=== PATIENT | male | born 1950 | race Caucasian/White ===

== ENCOUNTER 2018-11-22 06:00 | Emergency (ER) | payer MEDICARE, OTHER, SELFPAY ==
[2018-11-22 06:02] VITALS: BP 147/74; PULSE 76; RESP 18; TEMP 37.1; O2SAT 16; BMI 37.8
--- NOTE | 2018-11-22 06:11 | CT_ITS ---
STUDY: CT ABDOMEN AND PELVIS WITH CONTRAST REASON FOR EXAM: Male, 68 years old. Status post gastric bypass, diarrhea, lower abdominal pain RADIATION DOSAGE (If Supplied By Facility): CTDIvol = ( 19.44 ) mGy, DLP = ( 1576.42 ) mGycm TECHNIQUE: Transaxial images were obtained from the dome of the diaphragm to the symphysis pubis without oral contrast. 100 IV/Oral Isovue 300 was administered. Sagittal and coronal images were reconstructed. Individualized dose optimization techniques were used for this CT. COMPARISON: None. FINDINGS: The visualized lung bases are unremarkable. The visualized portions of the heart are within normal limits. Normal liver. Normal gallbladder and extrahepatic biliary system. Normal spleen. Normal pancreas. Normal bilateral adrenal glands. 2.7 cm cyst in the right kidney. Normal left kidney. Prior surgery of the stomach and small intestine. Normal colon. The appendix is visualized and appears normal. Normal abdominal aorta. Normal inferior vena cava. Normal retroperitoneum. Mild mesenteric thickening is noted along the right paracolic gutter, of question etiology. Normal urinary bladder. The prostate is 6 x 5.2 cm. Normal abdominal wall. Mild degenerative vertebral changes. Grade 1 spondylolisthesis at L5-S1. Spondylolysis of L5. CT/Abdomen/Pelvis WITH Contrast IMPRESSION: Right renal cyst. Mildly prominent prostate. No bowel obstruction. Mild mesenteric thickening is noted along the right paracolic gutter, of question etiology. Electronically Signed: Michael Yan DO at 8:46 EDT Tel [phone], Service support ,
--- NOTE | 2018-11-22 06:13 | ED.DCSUM_ITS ---
- ER Visit Summary Date of Service: 11/22/18 Chief Complaint: Abdominal pain, loose stools History of Present Illness: The patient is a 68 M who has abdominal pain and loose stools. He had this for 2 days. He describes cramping and sharp pain diffusely about his abdomen. He states that trying to have a bowel movement makes the pain worse. Nothing really makes it better. He has nausea without vomiting which started today. He has had looser stools and describes it as liquid with varying colors. He denies any urinary symptoms. He had a Kory-en-Y gastric bypass done on October 16 at [facility]. He has had no complications from the surgery up until today. He denies fevers. He took nothing for the pain or diarrhea at home today. 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 Physical Examination: Vital signs reviewed. HEENT exam unremarkable. Heart is regular rate and rhythm without murmurs. Lungs are clear to auscultation. Abdomen is soft diffuse tenderness. There is no guarding or rebound tenderness. His incisions are well-healed. Extremities reveal no edema. Skin exam normal. Neurologic exam normal. Test Results: Laboratory studies are unremarkable except for glucose of 140. His INR is 1.9. CAT scan of the abdomen pelvis with p.o. and IV contrast Emergency Department Course and Treatment: Patient was medicated with morphine and Zofran. Treatment Plan: [] Disposition: [] Impression: [] This note was generated with [employer] dictation software. It may contain incorrect words, spelling, and punctuation that were not noted in review of the chart prior to signing <Main Hernandez - Last Filed: 11/22/18 07:00> - ER Visit Summary Date of Service: 11/22/18 Test Results: CT scan returns with evidence of right renal cyst and mild prominent prostate. No bowel obstruction is noted. There is mild mesenteric thickening along the right paracolic gutter of questionable etiology. Emergency Department Course and Treatment: On repeat examination patient remains comfortable. He is been able to urinate without difficulty. I spoke with Dr. Olivier, on-call for the patient's gastric bypass surgeon. He advised patient to continue liquid diet and Tylenol or Percocet as needed for pain, no NSAIDs. Patient is scheduled to follow-up in the office in 4 days and is to keep that appointment. Treatment Plan: [] Disposition: Discharge Impression: Diarrhea status post Kory-en-Y gastric bypass This note was generated with [employer] dictation software. It may contain incorrect words, spelling, and punctuation that were not noted in review of the chart prior to signing <Alexandra Cuevas - Last Filed: 11/22/18 10:54> ED Disposition <aMin Hernandez - Last Filed: 11/22/18 07:00> <Alexandra Cuevas - Last Filed: 11/22/18 10:54> - Plan for ED Patient: Referrals: Carlton Khan MD [Primary Care Provider] -
[2018-11-22] MEDS: Ondansetron 4 MG/2 ML Vial IV (06:26)
[2018-11-22] MEDS: Morphine 4 MG/ML Syringe IV (06:26)
[2018-11-22] MEDS: 0.9% Normal Saline 1,000 ML 1000 ML IV (06:26)
[2018-11-22 06:31] LABS: Absolute Lymphocyte Count 0.85 X10^3/uL (0.83-4.51); Absolute Neutrophil Count 7.2 X10^3/uL (2.0-7.7); Basophil# 0.04 X10^3/uL; Basophil% 0.4 % (0-1); Eosinophil# 0.08 X10^3/uL; Eosinophils% 0.9 % (0-5); Hematocrit 44.2 % (40-54); Hemoglobin 14.3 g/dL (13.0-16.5); Lymphocyte # 0.85 X10^3/ul (4.0); Lymphocyte % 9.2 % (19-41); Mean Corp Hgb Conc 32.4 g/dL (32-36); Mean Corpuscular Volume 86.5 fL (80-94); Mean Platelet Vol. 11.2 fl (6.2-12.0); Monocyte# 1.03 X10^3/uL; Monocyte% 11.2 % (0-10); NRBC Flagged by Analyzer 0 % (0-5); Neutrophil # 7.19 X10^3/uL (2.7-7.7); Neutrophil % 78.1 % (47-70); Platelet Count 209 K/mm3 (150-450); RBC Distribution Width CV 15.4 % (11.6-14.6); RBC Distribution Width SD 48.7 fl (35.1-43.9); Red Blood Count 5.11 M/mm3 (4.6-6.2); White Blood Count 9.2 K/mm3 (4.4-11.0)
[2018-11-22 06:39] LABS: ALB/GLOB Ratio 0.9 RATIO (0.9-2.4); AST(SGOT) 18 U/L (15-37); Alanine Aminotransfer ALT/SGPT 21 U/L (16-61); Albumin, Serum 3.1 g/dL (3.2-5.0); Alkaline Phosphatase 76 U/L (45-117); Anion Gap 9 (5-15); BUN 17 mg/dL (7-18); BUN/Creat Ratio 21.5 RATIO (10-20); Calcium,Total 8.5 mg/dL (8.5-10.1); Chloride 107 mmol/L (98-107); Creatinine, Serum 0.79 mg/dL (0.70-1.30); EST Glomerular Filtration Rate 104 mL/min (>60); Est Glom Filt Rate - Afr Amer 126 mL/min (>60); Estimated Creatinine Clearance 72.66 ml/min; Globulin 3.4 g/dL (2.2-4.2); Glucose 140 mg/dL (74-106); Lipase 153 U/L (73-393); Potassium 3.7 mmol/L (3.5-5.1); Protein, Total 6.5 g/dL (6.4-8.2); Sodium Level 141 mmol/L (136-145)
[2018-11-22 06:40] LABS: International Normalized Ratio 1.9; Prothrombin Time (Protime)PT. 22.1 SECONDS (11.7-14.9)
[2018-11-22 09:13] VITALS: BP 136/76; PULSE 57; RESP 18; O2SAT 95
--- NOTE | 2018-11-22 10:55 | ED.DEP ---
ED Disposition - Plan for ED Patient: Disposition: Home or Assisted Living Instructions: ABDOMINAL PAIN, Unkown Cause, (Male) Referrals: Owen Orozco [NON-STAFF] - Keep Khadra appointment
[2018-11-22 11:00] VITALS: BP 117/65; PULSE 63; RESP 18; O2SAT 92
== END 2018-11-22 11:40 | disposition home or self-care (01) ==
PROVIDERS: Emergency Provider Emergency Medicine; Family Provider Family Medicine; PCP Family Medicine
DX: R19.7 Diarrhea, unspecified (principal); Z98.84 Bariatric surgery status; I10 Essential (primary) hypertension; E11.9 Type 2 diabetes mellitus without complications; K21.9 Gastro-esophageal reflux disease without esophagitis; Z86.718 Personal history of other venous thrombosis and embolism; Z79.01 Long term (current) use of anticoagulants
CPT/HCPCS: 74177; 80053; 83690; 85025; 85610; 96361; 96374; 96375; 99285; J7030; Q9967; A4216; J2405

== ENCOUNTER → 2019-05-07 13:30 | Outpatient (CLI) | payer MEDICARE, OTHER, SELFPAY ==
--- NOTE | 2019-05-07 13:40 | US_ITS ---
STUDY: SCROTUM ULTRASOUND REASON FOR EXAM: Male, 68 years old. PAIN TECHNIQUE: Ultrasound evaluation of the scrotum was performed with color Doppler and static brady-scale imaging. COMPARISON: None. FINDINGS: RIGHT TESTICLE INTRATESTICULAR: There is a normal size of the right testicle. The right testicle measures 3.9 x 3.8 x 2.2 cm. There is a homogenous echotexture. There is normal arterial and normal venous vascularity. There is no demonstrated right testicular mass or cyst. EXTRATESTICULAR: The epididymis is normal in size. The epididymis head measures 1.0 x 1.2 x 1.1 cm. There is normal vascularity of the epididymis. There is a well-defined cystic structure within the epididymis, without internal echoes, consistent with an epididymal cyst. This measures 0.87 x 1.0 x 0.81 cm. There is a small hydrocele. There is no demonstrated varicocele. There is no demonstrated extratesticular mass or cyst. LEFT TESTICLE INTRATESTICULAR: There is a normal size of the left testicle. The left testicle measures 3.7 x 3.0 x 2.5 cm. There is a homogenous echotexture. There is normal arterial and normal venous vascularity. There are 2 small adjacent intratesticular cysts measuring 0.5 x 0.5 cm and 0.32 x 0.42 cm. EXTRATESTICULAR: The epididymis is normal in size. The epididymis head measures 1.1 x 0.91 x 0.91 cm. There is normal vascularity of the epididymis. There is no demonstrated epididymal cystic structure. There is no demonstrated hydrocele. There is no demonstrated varicocele. There is no demonstrated extratesticular mass or cyst. US/Testicular with Arterial Flow IMPRESSION: Right-sided small epididymal cyst with small hydrocele. Left-sided intratesticular cysts. No evidence of intratesticular soft tissue mass. Normal symmetrical color flow within the bilateral testes. Electronically Signed: Vidhya Saeed MD at 1:41 EST , Service support ,
== END ==
PROVIDERS: PCP Family Medicine; Referring Provider Registered Nurse Nephrology; Visit Provider Registered Nurse Nephrology
DX: N50.82 Scrotal pain (principal)
CPT/HCPCS: 76870; 93976

== ENCOUNTER 2019-08-15 12:58 | Emergency (ER) | payer MEDICARE, OTHER, SELFPAY ==
[2019-08-15 13:00] VITALS: BP 122/76; PULSE 56; RESP 16; TEMP 37.1; BMI 26.9
--- NOTE | 2019-08-15 13:16 | RAD_ITS ---
STUDY: X-RAY - RIGHT SHOULDER REASON FOR EXAM: Male, 68 years old. fell two days ago TECHNIQUE: 5 view(s) of the shoulder. COMPARISON: None. FINDINGS: There is mild degenerative arthrosis of the glenohumeral articulation. There is degenerative arthrosis of the acromioclavicular joint without inferior osseous spur formation. Normal acromion. There is demineralization of the humerus and visualized osseous structures. The soft tissue structures are unremarkable. Normal visualized pulmonary apex. RAD/Shoulder min 2 Views IMPRESSION: Degenerative changes with no evidence of acute osseous process. Electronically Signed: Arnaldo Garcia DO at 14:01 EDT , Service support ,
--- NOTE | 2019-08-15 13:17 | ED.DCSUM_ITS ---
- ER Visit Summary Date of Service: 08/15/19 Chief Complaint: [Fall and injury to right shoulder] History of Present Illness: The patient is a 68 M [presents to the emergency department after sustaining a fall while walking 2 days ago. Patient states that he slipped on some gravel and fell injuring his right arm. He is not sure if his elbow hit first or the shoulder. Denies striking his head. No loss of consciousness. He denies any neck pain. Patient has pain with trying to lift his arm up. Patient otherwise has no medical history currently. Patient used to be diabetic but that resolved after he had bariatric surgery and lost 150 pounds in the last year.] Physical Examination: [HEENT-PERRLA, EOMI. Cranial nerves II through XII grossly intact. TMs clear. Mucous membranes moist. No adenopathy. No external evidence of trauma to his head. No C-spine tenderness on palpation. Cardiovascular-regular rate and rhythm without murmur or ectopy Lungs-clear to auscultation, chest wall stable without crepitus or subcu emphysema Abdomen-normoactive bowel sounds, soft, nontender, no rebound or rigidity, no peritoneal signs. Extremities-intact ?4, normal range of motion, normal pulses. Right shoulder- patient has diffuse tenderness about the glenohumeral joint. Patient has pain with abduction and range of motion at the glenohumeral joint. No obvious deformity or sulcus sign noted. No significant ecchymosis or bruising noted. Test Results: [X-rays of the right shoulder ordered] Emergency Department Course and Treatment: [] Treatment Plan: [] Disposition: [] Impression: [] This note was generated with [employer] dictation software. It may contain incorrect words, spelling, and punctuation that were not noted in review of the chart prior to signing ED Disposition - Plan for ED Patient: Referrals: Carlton Khan MD [Primary Care Provider] -
[2019-08-15 14:09] VITALS: BP 121/77; PULSE 64; RESP 20; O2SAT 99
--- NOTE | 2019-08-15 14:57 | ED.DEP ---
ED Disposition - Plan for ED Patient: Instructions: ED EXTREMITY CONTUSION Upper, ED Shoulder Sprain Referrals: Carlton Khan MD [Primary Care Provider] - Emir Curtis MD [STAFF PHYSICIAN] - 3-5 Days
== END 2019-08-15 15:06 | disposition home or self-care (01) ==
LOC: ED 13:24
PROVIDERS: Emergency Provider Emergency Medicine; PCP Family Medicine
DX: S40.011A Contusion of right shoulder, initial encounter (principal); S43.401A Unspecified sprain of right shoulder joint, initial encounter; W19.XXXA Unspecified fall, initial encounter; Y93.01 Activity, walking, marching and hiking; Z79.01 Long term (current) use of anticoagulants
CPT/HCPCS: 73030; 99282

== ENCOUNTER 2024-02-23 22:45 | Emergency (ER) | payer MEDICARE, OTHER, SELFPAY ==
[2024-02-23 22:46] VITALS: BP 124/79; PULSE 80; RESP 16; TEMP 37; O2SAT 97; BMI 33.7
--- NOTE | 2024-02-23 23:03 | EKG12_ITS ---
Test Reason : CP Blood Pressure : */* mmHG Vent. Rate : 73 BPM Atrial Rate : * BPM P-R Int : * ms QRS Dur : 106 ms QT Int : 360 ms P-R-T Axes : * -38 -21 degrees QTcB Int : 396 ms Atrial fibrillation Left axis deviation Nonspecific ST and T wave abnormality Abnormal ECG Confirmed by SYLVAIN FLANNERY, TOBY ([id number]), communications editor ELSY SRIVASTAVA ([id number]) on 02/24/2024 6:43:07 AM Referred By: Confirmed By: TOBY NARAYAN MD
--- NOTE | 2024-02-23 23:03 | ED.VIS.CHEST ---
HPI History of Present Illness Chief Complaint: Chest Pain Informant: patient and spouse/S.O. Narrative Narrative: Patient 73-year-old male presenting to the emergency room chief complaint of chest pain. Patient states that he has been on warfarin for prior thromboembolism. He has a history of Kory-en-Y weight loss surgery in 2019. A week ago he was seen at outside hospital on his way to [place] where he was diagnosed with a new onset atrial fibrillation. He states when that occurred he had pain similar to tonight on the left side of his chest pressure ache. Nothing seems to make it better or worse. He states that his A-fib has been rate controlled on its own. He states he had 2 sets of cardiac enzymes are normal. His INR was therapeutic. Patient states that the A-fib did not resolve and he supposed to see cardiology for the first time since 2019 upcoming tonight he noted pain similar to last Mondays experience. Seems worse however. He notes that yesterday he ate at a restaurant and the food did not agree with him and from a gas/indigestion feeling but otherwise he has been eating normally. He denies black or bloody stools. He has a copy of his EKG with him from that visit. Patient states he is normally very active walking about 20 steps a day. [facility] Home Medications ?Medication ?Instructions ?Recorded ?Last Taken ?Type calcium carbonate 500 mg PO TIDCM 11/22/18 Unknown History omeprazole 10 mg capsule,delayed 10 mg PO DAILY 11/22/18 Unknown History release pediatric multivit no.79-ferrous 36 mg PO DAILY 11/22/18 Unknown History fumarate 18 mg iron chewable tablet warfarin 5 mg tablet 5 mg PO SUTUWETHFRSA 11/22/18 Unknown History warfarin 7.5 mg tablet 2.5 mg PO MO 08/15/19 Unknown History ferrous sulfate 325 mg (65 mg 325 mg PO QDAY 02/24/24 Unknown History iron) tablet (iron) zinc gluconate 50 mg tablet 50 mg PO DAILY 02/24/24 Unknown History Allergy/AdvReac Type Severity Reaction Status Date / Time Penicillins Allergy Hives Verified 02/23/24 22:48 prochlorperazine (From AdvReac Other Verified 02/23/24 22:48 Compazine) Social History Smoking Status: Never smoker ROS ROS ED Constitutional Constitutional ED: Denies chills, fever(s) or weight loss Eyes Eyes: Denies change in vision or diplopia ENT ENT ED: Denies ear pain, rhinorrhea or sore throat Cardiovascular Cardiovascular: Reports chest pain; Denies orthopnea, palpitations or racing heartbeat Respiratory/Chest Respiratory/Chest: Denies cough, dyspnea or orthopnea Gastrointestinal Gastrointestinal: Denies abdominal pain, diarrhea, nausea or vomiting Genitourinary Genitourinary ED: Denies dysuria, hematuria or urinary frequency Musculoskeletal Musculoskeletal: Denies arthralgias or myalgias Integumentary Denies abscess or rash Neurologic Neurologic: Denies headache(s) or weakness Psychiatric Psychiatric: Denies anxiety, depression, suicidal ideation or suicidal thoughts Endocrine Endocrinology: Denies polydipsia, polyphagia or polyuria Allergic/Immunologic Allergic/Immunologic ED: Denies mouth swelling, tongue swelling or urticaria EXAM Physical Exam Narrative Exam Narrative: Patient appears uncomfortable rubbing the left inferior breast region. Const Vital Signs: 02/23/24 22:46 02/23/24 23:59 02/24/24 00:00 Temperature 98.6 F Temperature Source Oral Pulse Rate 80 77 75 Respiratory Rate 16 24 H 21 H Blood Pressure 124/79 H Blood Pressure Mean 94 Pulse Ox 97 Oxygen Delivery Method Room Air 02/24/24 00:15 02/24/24 01:02 02/24/24 01:15 Temperature Temperature Source Pulse Rate 79 84 Respiratory Rate 19 H 44 H 12 Blood Pressure Blood Pressure Mean Pulse Ox Oxygen Delivery Method 02/24/24 01:30 02/24/24 01:45 02/24/24 02:00 Temperature Temperature Source Pulse Rate 71 81 87 Respiratory Rate 28 H 17 24 H Blood Pressure Blood Pressure Mean Pulse Ox Oxygen Delivery Method 02/24/24 02:15 02/24/24 03:10 Temperature Temperature Source Pulse Rate 88 71 Respiratory Rate 20 H 18 Blood Pressure 128/65 H Blood Pressure Mean 86 Pulse Ox Oxygen Delivery Method Positive well nourished, well developed and obese General Appearance ED: well developed and NAD Nutritional Appearance: obese HEENT Reports normocephalic, head/scalp atraumatic and moist mucous membranes Eyes PERRL and EOMs intact bilaterally Neck no lymphadenopathy, supple and no JVD Resp normal respiratory effort and clear to auscultation bilaterally Cardio regular rhythm and no murmurs Rhythm: abnormal rhythm irregularly irregular GI normal to inspection, nondistended, normoactive bowel sounds and non-tender Palpation: soft Back/Spine no CVA tenderness and normal ROM Extremity normal to inspection General Extremety ED: Negative for edema General Extremity: Negative for edema Neuro oriented x3 and CN's II-XII intact bilaterally Sensorium / Orientation: alert Motor Exam: strength 5/5 throughout Psych mental status grossly normal Mood & Affect: Negative for depressed or tearful Skin no rashes or lesions noted and no wounds MDM MDM MDM Narrative Medical decision making narrative: Differential diagnosis includes but not limited to thromboembolism acute coronary syndrome cardiac dysrhythmia electrolyte abnormalities reflux esophagitis pancreatitis biliary disease peptic ulcer disease pleural effusion pneumonia Patient's white count is normal at 7.7 hemoglobin 16.2 platelet count of 176. INR is supratherapeutic at 3.4. Patient's lipase is normal at 55. His liver panel shows an elevated bilirubin at 2.7 direct bilirubin 1.9 AST 293 ALT 322 alk phos 243 troponin is 6. Sodium 139 potassium 3.9 normal creatinine normal BUN normal anion gap and CO2 of 23. Patient does have some labs from his ED visit on 15 February of this year. At that time there was a normal bilirubin at 0.6 AST 37 ALT 29 alk phos 86. I do not appreciate any right upper quadrant tenderness on examination. Due to the hour I do not have ready access to ultrasound. Therefore a CT was obtained. This demonstrates a distended gallbladder with a few tiny foci of air versus tiny cholesterol stones. Gallbladder wall is prominent with mild adjacent stranding. Please see radiologist read. Patient received antibiotics. Because the patient has had prior Kory-en-Y gastric bypass at [facility] I spoke with their transfer line. I would anticipate a transfer there for further evaluation. I do not feel strongly that this is cardiac in nature. We are going to be obtaining a second troponin. Given that these are the same symptoms that were present a week ago and resolved his symptomology yesterday with eating and then again tonight with the elevated LFTs raises my concern for possible choledocholithiasis and referred pain. Patient wishes to go by private car. He was explicitly told not to eat or drink anything along the way. History & Record Review Discussion w/independent historian: Patient and Significant other Lab Data Attestation: I reviewed the patient's lab results. Labs: Laboratory Results - last 24 hr 02/23/24 23:07 WBC 7.7 RBC 5.68 Hgb 16.2 Hct 49.1 MCV 86.4 MCH 28.5 MCHC 33.0 RDW Std Deviation 44.5 H RDW Coeff of Radha 14.1 Plt Count 176 MPV 9.8 Immature Gran % (Auto) 0.600 Neut % (Auto) 82.6 H Lymph % (Auto) 8.4 L [place]bury % (Auto) 7.4 Eos % (Auto) 0.6 Baso % (Auto) 0.4 Absolute Neuts (auto) 6.4 Absolute Lymphs (auto) 0.65 L Nucleated RBC % 0 PT 34.2 H INR 3.4 Sodium 139 Potassium 3.9 Chloride 108 H Carbon Dioxide 23.0 Anion Gap 8 BUN 16 Creatinine 0.86 Estim Creat Clear Calc 96.32 Est GFR (MDRD) Af Amer 113 Est GFR (MDRD) Non-Af 93 BUN/Creatinine Ratio 18.6 Glucose 164 H Calcium 8.3 L Total Bilirubin 2.70 H Direct Bilirubin 1.94 H AST 293 H ALT 322 H Alkaline Phosphatase 243 H Troponin I High Sens 6 Total Protein 6.7 Albumin 3.3 Globulin 3.4 Lipase 55 Radiography Diagnostic Testing: Clinical Impression(s) from Imaging Studies Abdomen/Pelvis CT 02/24/24 00:11 IMPRESSION: 1. Findings suggest mild acute cholecystitis. Tiny hypodense foci in the gallbladder most likely cholesterol stones, air less likely, which would suggest emphysematous cholecystitis. 2. Hepatic steatosis. 3. Enlarged prostate. Increased compared to prior. Electronically Signed: Christina Harvey MD at 1:32 EST , EKG Initial EKG: Attestation: I personally reviewed and interpreted this EKG as follows: Comments: Atrial fibrillation ventricular rate of 73 bpm Prior EKG tracings: available for review (I do not see any significant changes from the EKG from his ED visit last.) Management Discussion w/another healthcare provider: Forensic Sergeant (Dr Franks ([facility])) Discharge Plan Triage Chief Complaint: Chest Pain ED Provider: Cristobal Hilton Dx/Rx/DC Orders Clinical Impression: Chest pain, Choledocholithiasis, Elevated liver function tests Prescriptions: No Action omeprazole 10 MG capsule 10 mg PO DAILY warfarin 5 MG tablet 5 mg PO SUTUWETHFRSA calcium carbonate 500 MG tablet 500 mg PO TIDCM pedi multivitamin no.79-iron 18 MG tablet,chewable 36 mg PO DAILY warfarin 7.5 MG tablet 2.5 mg PO MO ferrous sulfate [iron] 325 mg (65 mg iron) tablet 325 mg PO QDAY zinc gluconate 50 mg tablet 50 mg PO DAILY Primary Care Provider: Vanessa Olvera Referrals: Vanessa Olvera PA [Primary Care Provider] - Print Language: Belarusian Disposition Disposition: Acute Care Hospital Discharge Location: [facility]
[2024-02-23 23:14] LABS: Absolute Lymphocyte Count 0.65 X10^3/uL (0.83-4.51); Absolute Neutrophil Count 6.4 X10^3/uL (2.0-7.7); Basophil# 0.03 X10^3/uL; Basophil% 0.4 % (0-1); Eosinophil# 0.05 X10^3/uL; Eosinophils% 0.6 % (0-5); Hematocrit 49.1 % (40-54); Hemoglobin 16.2 g/dL (13.0-16.5); Lymphocyte # 0.65 X10^3/ul (0.83-4.51); Lymphocyte % 8.4 % (19-41); Mean Corpuscular Hgb 28.5 pg (27.0-32.0); Mean Corpuscular Volume 86.4 fL (80-94); Mean Platelet Vol. 9.8 fl (6.2-12.0); Monocyte# 0.57 X10^3/uL; Monocyte% 7.4 % (0-10); NRBC Flagged by Analyzer 0 % (0-5); Neutrophil # 6.38 X10^3/uL (2.7-7.7); Neutrophil % 82.6 % (47-70); Platelet Count 176 K/mm3 (150-450); RBC Distribution Width CV 14.1 % (11.6-14.6); RBC Distribution Width SD 44.5 fl (35.1-43.9); Red Blood Count 5.68 M/mm3 (4.6-6.2); White Blood Count 7.7 K/mm3 (4.4-11.0)
[2024-02-23 23:24] LABS: International Normalized Ratio 3.4; Prothrombin Time (Protime)PT. 34.2 SECONDS (11.7-14.9)
[2024-02-23 23:50] LABS: AST(SGOT) 293 U/L (15-37); Alanine Aminotransfer ALT/SGPT 322 U/L (16-61); Albumin, Serum 3.3 g/dL (3.2-5.0); Alkaline Phosphatase 243 U/L (45-117); Anion Gap 8 (5-15); BUN 16 mg/dL (7-18); BUN/Creat Ratio 18.6 RATIO (10-20); Bilirubin, Direct 1.94 mg/dL (0.00-0.30); Calcium,Total 8.3 mg/dL (8.5-10.1); Chloride 108 mmol/L (98-107); Creatinine, Serum 0.86 mg/dL (0.70-1.30); EST Glomerular Filtration Rate 93 mL/min (>60); Est Glom Filt Rate - Afr Amer 113 mL/min (>60); Estimated Creatinine Clearance 96.32 ml/min; Globulin 3.4 g/dL (2.2-4.2); Glucose 164 mg/dL (74-106); Lipase 55 U/L (13-75); Potassium 3.9 mmol/L (3.5-5.1); Protein, Total 6.7 g/dL (6.4-8.2); Sodium Level 139 mmol/L (136-145); Troponin-I HS 6 pg/mL (3.0-78.0)
[2024-02-23 23:59] VITALS: PULSE 77; RESP 24
[2024-02-24] VITALS (16 sets, daily range): BP systolic 75–128; BP diastolic 28–85; PULSE 71–88; RESP 12–44; TEMP 38.3; O2SAT 93
--- NOTE | 2024-02-24 00:11 | CT_ITS ---
EXAM: CT Abdomen And Pelvis W/ Contrast Injection HISTORY: Pain Elevated LFTs TECHNIQUE: Routine protocol CT abdomen pelvis. IV Contrast: IV 100mL Isovue-370 . Oral Contrast: without. Sagittal and coronal images were reconstructed. RADIATION DOSAGE (If Supplied By Facility): CTDIvol = ( 21.99 ) mGy, DLP = ( 2612.43 ) mGycm Individualized dose optimization techniques were used for this CT. COMPARISON: CT abdomen and pelvis 11/22/2018. LIMITATIONS: None. FINDINGS: LOWER CHEST: Minimal dependent atelectasis in the lung bases. Elevated right not significantly changed. Coronary artery calcifications are noted. Surgical clips and postsurgical changes at the GE junction. LIVER: Fatty infiltration. GALLBLADDER/BILE DUCTS: . Gallbladder is distended, with a few tiny foci of air versus tiny cholesterol stones, too small to characterize. Gallbladder wall is prominent, with mild adjacent stranding. No definite calcified gallstones identified. . PANCREAS: Unremarkable. SPLEEN: Unremarkable. ADRENAL GLANDS: Unremarkable. KIDNEYS / URETERS: Unremarkable. Small cyst in the right kidney, no follow-up needed. BOWEL / MESENTERY: Surgical clips in the upper and mid abdomen post gastric bypass. No bowel obstruction. APPENDIX: Identified and normal. No evidence of acute appendicitis. PERITONEUM: No free air. No free fluid. VESSELS: Abdominal aorta is normal caliber. RETROPERITONEUM: Unremarkable. REPRODUCTIVE ORGANS: Prostate enlarged and heterogeneous. Appears increased size compared to prior. BLADDER: Unremarkable. ABDOMINAL WALL: Unremarkable. BONES: No acute abnormality. Bilateral pars defects at L5 with grade 2 spondylolisthesis at L5-S1 and degenerative changes. OTHER: None. CT/Abdomen/Pelvis W IV Cont ONLY IMPRESSION: 1. Findings suggest mild acute cholecystitis. Tiny hypodense foci in the gallbladder most likely cholesterol stones, air less likely, which would suggest emphysematous cholecystitis. 2. Hepatic steatosis. 3. Enlarged prostate. Increased compared to prior. Electronically Signed: Christina Harvey MD at 1:32 EST ,
[2024-02-24] MEDS: Cefepime HCl 2 GM in 0.9% Normal Saline (100mL MB+) 100 ML IV (02:36)
[2024-02-24] MEDS: metroNIDAZOLE 500 MG/100 ML BAG 100 MG IV (03:48)
== END 2024-02-24 04:36 | disposition short-term general hospital (02) ==
PROVIDERS: Emergency Provider Emergency Medicine; Visit Provider Emergency Medicine
DX: R07.9 Chest pain, unspecified (principal); K80.42 Calculus of bile duct with acute cholecystitis without obstruction; E66.9 Obesity, unspecified; Z79.01 Long term (current) use of anticoagulants; Z79.899 Other long term (current) drug therapy
CPT/HCPCS: 74177; 80048; 80076; 83690; 84484; 85025; 85610; 93005; 96365; 96367; 99284; J7040; Q9967; A4216